=== PATIENT | male | born 1945 | race Caucasian/White ===

== ENCOUNTER → 2018-01-21 10:09 | Outpatient (CLI) | payer MEDICARE, SELFPAY ==
--- NOTE | 2018-01-21 | DI.US.S_ITS ---
PROCEDURE: US CAROTID DOPPLER BI INDICATIONS: VISUAL DISTURBANCES TECHNIQUE: Color and pulse Doppler interrogation was performed of both carotid systems, with image documentation and velocity measurements. COMPARISON: None. FINDINGS: Stenosis calculations are based on SRU (Society of Radiologists in Ultrasound) criteria. The flow velocities and the arterial waveforms are normal within both carotid arterial systems. Atherosclerotic plaque is seen on both sides. The estimated degree of internal carotid artery stenosis is less than 50%. Antegrade flow is confirmed within both vertebral arteries. IMPRESSION: No hemodynamically significant stenosis is seen. Atherosclerotic plaque is noted bilaterally. Dictated by: Narciso Ibanez M.D. on 01/21/2018 at 11:20 Approved by: Narciso Ibanez M.D. on 01/21/2018 at 11:21
== END ==
PROVIDERS: Family Provider Family Medicine; PCP Family Medicine; Visit Provider Physician Assistant
DX: H53.9 Unspecified visual disturbance (principal); I65.23 Occlusion and stenosis of bilateral carotid arteries
CPT/HCPCS: 93880

== ENCOUNTER 2018-06-23 13:32 | Emergency (ER) | payer MEDICARE, SELFPAY ==
[2018-06-23] VITALS (9 sets, daily range): BP systolic 83–134; BP diastolic 54–73; PULSE 81–105; RESP 18–22; TEMP 35.9–36.7; O2SAT 97–100; BMI 29.2
--- NOTE | 2018-06-23 14:40 | ED_ITS ---
HPI - Syncope <Natali Jamel, DO - Last Filed: 06/24/18 07:20> General Chief Complaint: Syncope Stated Complaint: passed out several times, muscle aches, constipate Time Seen by Provider: 06/23/18 14:12 Source: patient Mode of arrival: ambulatory Limitations: no limitations History of Present Illness HPI narrative: Patient is a 73-year-old male who presents with a variety of complaints. He states that he felt like he got the flu a month ago in [place]. He has had some intermittent abdominal pain however it has gone away. Today he had quite significant abdominal pain and briefly collapsed in the recliner. 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 He felt like it was coming on he felt lightheaded flushed and heart racing. No nausea. He has not had any fever no diarrhea. He felt extremely dizzy but no focal deficits or unilateral weakness. He is overall feeling better and was able to ambulate into the ED without any assistance. states that he did not have any shaking movements foaming at the mouth a rolling of the eyes at time of passing out. MD complaint: felt faint Context: at rest Related Data Home Medications Medication Instructions Recorded Confirmed aspirin 81 mg PO DAILY #0 12/18/10 06/23/18 atorvastatin [Lipitor] 20 mg PO BEDTIME 06/23/18 06/23/18 calcium carbonate 1,500 mg PO DAILY 06/23/18 06/23/18 cholecalciferol (vitamin D3) 1,000 unit PO DAILY 06/23/18 06/23/18 [Vitamin D3] fluoxetine 20 mg PO DAILY 06/23/18 06/23/18 folic acid 1 tab PO DAILY 06/23/18 06/23/18 levothyroxine 75 mcg PO DAILY 06/23/18 06/23/18 lisinopril 10 mg PO DAILY 06/23/18 06/23/18 milk thistle 1 cap PO DAILY 06/23/18 06/23/18 [id number]-vpt-[id number]-lycopen-lutein 1 tab PO DAILY 06/23/18 06/23/18 [Centrum Silver] pantoprazole 40 mg PO DAILY 06/23/18 06/23/18 trazodone 50 mg PO BEDTIME PRN 06/23/18 06/23/18 Allergies Allergy/AdvReac Type Severity Reaction Status Date / Time codeine [CODEINE] Allergy Mild GASTRO/INTESTINAL Verified 06/23/18 15:30 ISSUES Review of Systems <Natali Mccullough DO - Last Filed: 06/24/18 07:20> Review of Systems ROS Unobtainable: All systems reviewed & are unremarkable except as noted in HPI and below Constitutional Denies chills, Denies fever(s), Denies lethargy and Denies weakness Eyes Denies change in vision, Denies eye discharge, Denies irritation and Denies loss of vision Cardiovascular Denies chest pain, Reports syncope, Reports rapid heart rate and Reports lightheadedness Gastrointestinal Gastrointestinal: Reports abdominal pain, Denies nausea and Denies vomiting Genitourinary Denies hematuria, Denies flank pain, Denies urinary incontinence and Denies urinary urgency Musculoskeletal Denies back pain, Denies muscle weakness, Denies numbness and Denies tingling Integumentary/Breasts Denies pruritus, Denies erythema, Denies rash and Denies wounds Neurologic Reports syncope, Denies loss of vision, Denies numbness, Denies tingling and Denies weakness PFSH <Natali Mccullough DO - Last Filed: 06/24/18 07:20> Medical History GERD (gastroesophageal reflux disease) (Acute) Hyperlipidemia (Acute) Hypertension (Acute) Hypothyroid (Acute) Surgical History History of hip replacement History of tonsillectomy Status post cholecystectomy Social History Smoking Status: Never smoker Social History Smoking Status: Never smoker Exam <Natali Mccullough DO - Last Filed: 06/24/18 07:20> Initial Vital Signs Initial Vital Signs: Vital Signs Temperature 96.6 F L 06/23/18 13:49 Pulse Rate 103 H 06/23/18 13:49 Respiratory Rate 18 06/23/18 13:49 Blood Pressure 100/73 06/23/18 13:49 Pulse Oximetry 99 06/23/18 13:49 GENERAL: Overweight alert male no acute distress and in [no acute] distress. 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 RESPIRATORY: Breath sounds equal bilaterally, no wheezes rales or rhonchi. ABDOMEN: Soft, obese no pulsatile masses mild umbilical pain no guarding no rebound no right upper quadrant pain no lower abdominal pain : No CVA tenderness EXTREMITIES: Normal range of motion, no clubbing or edema. Neurovascularly intact NEUROLOGICAL: Alert and oriented x4.Normal gait and speech. Cranial nerves II through XII grossly intact. 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 <Gerald Gonzalez DO - Last Filed: 06/23/18 23:20> Initial Vital Signs Initial Vital Signs: Vital Signs Temperature 96.6 F L 06/23/18 13:49 Pulse Rate 103 H 06/23/18 13:49 Respiratory Rate 18 06/23/18 13:49 Blood Pressure 100/73 06/23/18 13:49 Pulse Oximetry 99 06/23/18 13:49 Course <Natali Mccullough DO - Last Filed: 06/24/18 07:20> Orders Ordered: Discontinued Medications Sodium Chloride (Normal Saline 0.9%) 1,000 mls @ 1,000 mls/hr IV BOLUS ONE Stop: 06/23/18 16:12 Last Infusion: 06/23/18 16:41 Dose: 0 mls/hr Admin: 06/23/18 15:30 Dose: 1,000 mls/hr Sodium Chloride (Normal Saline 0.9%) 1,000 mls @ 1,000 mls/hr IV BOLUS ONE Stop: 06/23/18 17:08 Last Infusion: 06/23/18 17:45 Dose: 0 mls/hr Admin: 06/23/18 16:43 Dose: 1,000 mls/hr Sodium Chloride (Normal Saline 0.9%) 1,000 mls @ 250 mls/hr IV CONT YESSY Last Infusion: 06/23/18 22:06 Dose: 0 mls/hr Admin: 06/23/18 17:49 Dose: 250 mls/hr Ceftriaxone Sodium/Dextrose (Rocephin) 1 gm in 50 mls @ 100 mls/hr IV NOW ONE Stop: 06/23/18 21:54 Last Infusion: 06/23/18 22:06 Dose: 0 mls/hr Admin: 06/23/18 21:37 Dose: 100 mls/hr Metronidazole (Flagyl) 500 mg in 100 mls @ 100 mls/hr IV NOW ONE Stop: 06/23/18 23:49 Last Infusion: 06/24/18 00:05 Dose: 0 mls/hr Admin: 06/23/18 23:02 Dose: 100 mls/hr Morphine Sulfate (Morphine) 2 mg IV NOW ONE Stop: 06/23/18 16:01 Last Admin: 06/23/18 16:02 Dose: 2 mg Morphine Sulfate (Morphine Sulfate) 2 mg IV NOW ONE Stop: 06/24/18 00:09 Last Admin: 06/24/18 00:11 Dose: 2 mg Vital Signs - 8 hr 06/24/18 01:16 06/24/18 01:54 Pulse Rate 81 81 Respiratory Rate 18 20 Blood Pressure [Right Arm] 113/70 103/66 Pulse Oximetry 99 97 <Gerald Gonzalez DO - Last Filed: 06/23/18 23:20> Orders Ordered: Discontinued Medications Sodium Chloride (Normal Saline 0.9%) 1,000 mls @ 1,000 mls/hr IV BOLUS ONE Stop: 06/23/18 16:12 Last Infusion: 06/23/18 16:41 Dose: 0 mls/hr Admin: 06/23/18 15:30 Dose: 1,000 mls/hr Sodium Chloride (Normal Saline 0.9%) 1,000 mls @ 1,000 mls/hr IV BOLUS ONE Stop: 06/23/18 17:08 Last Infusion: 06/23/18 17:45 Dose: 0 mls/hr Admin: 06/23/18 16:43 Dose: 1,000 mls/hr Sodium Chloride (Normal Saline 0.9%) 1,000 mls @ 250 mls/hr IV CONT YESSY Last Infusion: 06/23/18 22:06 Dose: 0 mls/hr Admin: 06/23/18 17:49 Dose: 250 mls/hr Ceftriaxone Sodium/Dextrose (Rocephin) 1 gm in 50 mls @ 100 mls/hr IV NOW ONE Stop: 06/23/18 21:54 Last Infusion: 06/23/18 22:06 Dose: 0 mls/hr Admin: 06/23/18 21:37 Dose: 100 mls/hr Metronidazole (Flagyl) 500 mg in 100 mls @ 100 mls/hr IV NOW ONE Stop: 06/23/18 23:49 Last Infusion: 06/24/18 00:05 Dose: 0 mls/hr Admin: 06/23/18 23:02 Dose: 100 mls/hr Morphine Sulfate (Morphine) 2 mg IV NOW ONE Stop: 06/23/18 16:01 Last Admin: 06/23/18 16:02 Dose: 2 mg Morphine Sulfate (Morphine Sulfate) 2 mg IV NOW ONE Stop: 06/24/18 00:09 Last Admin: 06/24/18 00:11 Dose: 2 mg Vital Signs - 8 hr 06/24/18 01:16 06/24/18 01:54 Pulse Rate 81 81 Respiratory Rate 18 20 Blood Pressure [Right Arm] 113/70 103/66 Pulse Oximetry 99 97 MDM - Syncope <Natali Mccullough DO - Last Filed: 06/24/18 07:20> Lab Data Attestation: I reviewed the patient's lab results. Result diagrams: 06/23/18 14:10 06/23/18 14:10 Lab Results 06/23/18 06/23/18 06/23/18 Range/Units 14:10 14:10 14:10 WBC 23.8 H (4.5-11.0) X10^3/uL RBC 4.32 L (4.5-5.9) X10^6/uL Hgb 14.0 (13.5-17.5) g/dL Hct 44.4 (41-53) % MCV 102.6 H (80-100) fL MCH 32.5 (26-34) PG MCHC 31.7 (30-36) % RDW 15.7 H (11.6-14.8) % Plt Count 280 (150-400) X10^3/uL Neut % (Auto) 86.9 H (50-75) % Lymph % (Auto) 4.1 L (25-40) % [place] % (Auto) 7.4 (3-14) % Eos % (Auto) 1.2 L (2-4) % Baso % (Auto) 0.4 (0-2) % Neut # (Auto) 81729 H (4947-0004) /uL Lymph # (Auto) 1000 L (4257-6386) /uL [place] # (Auto) 1800 H (0-900) /uL Eos # (Auto) 300 (0-450) /uL Baso # (Auto) 100 (0-100) /uL Sodium 137 (137-145) mmol/L Potassium 4.2 (3.4-5.1) mmol/L Chloride 106 (98-107) mmol/L Carbon Dioxide 19 L (22-32) mmol/L BUN 22 H (9-20) mg/dL Creatinine 1.10 (0.66-1.25) mg/dL Estimated GFR > 60.0 (>60) mL/min BUN/Creatinine Ratio 20.0 (6-22) Glucose 134 H (80-110) mg/dL Lactate (0.7-2.1) mmol/L Calcium 8.0 L (8.4-10.2) mg/dL Total Bilirubin 4.7 H (0.2-1.3) mg/dL AST 84 H (17-59) IU/L ALT 49 (21-72) IU/L Alkaline Phosphatase 432 H (38-126) U/L Total Creatine Kinase 48 L (55-170) U/L CK-MB (CK-2) TNP CK-MB (CK-2) Rel Index TNP Troponin I 0.017 (0.01-0.034) ng/mL Total Protein 6.3 (6.3-8.2) g/dL Albumin 2.9 L (3.5-5.0) g/dL Globulin 3.4 (1.7-4.1) g/dL Albumin/Globulin Ratio 0.9 L (1.0-2.8) Lipase 33929 H (23-300) U/L 06/23/18 06/23/18 Range/Units 14:10 18:04 WBC (4.5-11.0) X10^3/uL RBC (4.5-5.9) X10^6/uL Hgb (13.5-17.5) g/dL Hct (41-53) % MCV (80-100) fL MCH (26-34) PG MCHC (30-36) % RDW (11.6-14.8) % Plt Count (150-400) X10^3/uL Neut % (Auto) (50-75) % Lymph % (Auto) (25-40) % [place] % (Auto) (3-14) % Eos % (Auto) (2-4) % Baso % (Auto) (0-2) % Neut # (Auto) (9997-1590) /uL Lymph # (Auto) (5155-4715) /uL [place] # (Auto) (0-900) /uL Eos # (Auto) (0-450) /uL Baso # (Auto) (0-100) /uL Sodium (137-145) mmol/L Potassium (3.4-5.1) mmol/L Chloride (98-107) mmol/L Carbon Dioxide (22-32) mmol/L BUN (9-20) mg/dL Creatinine (0.66-1.25) mg/dL Estimated GFR (>60) mL/min BUN/Creatinine Ratio (6-22) Glucose (80-110) mg/dL Lactate 3.7 H 2.9 H (0.7-2.1) mmol/L Calcium (8.4-10.2) mg/dL Total Bilirubin (0.2-1.3) mg/dL AST (17-59) IU/L ALT (21-72) IU/L Alkaline Phosphatase (38-126) U/L Total Creatine Kinase (55-170) U/L CK-MB (CK-2) CK-MB (CK-2) Rel Index Troponin I (0.01-0.034) ng/mL Total Protein (6.3-8.2) g/dL Albumin (3.5-5.0) g/dL Globulin (1.7-4.1) g/dL Albumin/Globulin Ratio (1.0-2.8) Lipase (23-300) U/L Imaging Data Abdominal x-ray: Radiologist's impression: PROCEDURE: XR ABDOMEN MIN 2V INDICATIONS: pain bloating TECHNIQUE: 2 views of the abdomen were acquired. COMPARISON: None. FINDINGS: Surgical changes and devices: Cholecystectomy clips. Right hip arthroplasty. Bowel: No pneumoperitoneum. Mildly dilated loop of small bowel noted. The small bowel to 3.5 cm. Few scattered air fluid levels are noted. Soft tissues: No masses; visualized solid organ contours appear normal in size. No suspicious abdominal calcifications. Bones: No suspicious bony abnormalities. IMPRESSION: Mildly dilated loop of small bowel and air fluid level with differential height concerning for early or partial small bowel obstruction. Dictated by: Adele Dang MD, PhD on 06/23/2018 at 15:40 US - abdomen: Radiologist's impression: ADDENDUM This report includes an Addendum and supersedes previous reports for this exam. PROCEDURE: US ABDOMEN COMPLETE INDICATIONS: hypotenstion and ab pain. look aorta TECHNIQUE: Real-time scanning was performed of the abdominal and retroperitoneal organs, with image documentation. COMPARISON: [facility], CR, XR ABDOMEN MIN 2V, 06/23/2018, 15:21. [facility], CT, ABDOMEN WITH CONTRAST, 09/24/2016, 8:25. [facility], US, ABDOMEN COMPLETE, 08/28/2016, 10:15. FINDINGS: Liver: Liver is normal in size and coarsened in appearance. Gallbladder: Gallbladder has been removed. Biliary ducts: Intrahepatic bile ducts are non-dilated. Extrahepatic bile duct caliber measures 8.1 mm. Normal is 6-7 mm or less in diameter, or 10 mm or less post-cholecystectomy. Pancreas: The pancreas is poorly visualized. There is a questionable masslike appearance in the expected midline location of the pancreatic body, not well seen.. Spleen: Spleen is enlarged with varices. Kidneys: Kidneys are normal in size and echotexture. Right kidney measures 9.7 cm long; left kidney measures 9.7 cm long. No hydronephrosis or nephrolithiasis. No solid masses. Aorta: Visualized aorta is normal in caliber at less than 3 cm. Iliacs: Not well-seen. IVC: Not well-seen. Miscellaneous: Mild ascites is noted in the right upper quadrant adjacent to the liver. IMPRESSION: 1. Mild ascites in the right upper quadrant adjacent to the gallbladder. 2. Coarsened appearance of the liver, splenomegaly and varices most consistent with worsening portal venous hypertension. 3. Ill-defined question of possible mass within the region of the mid pancreatic body. This is poorly visualized and could be artifact. It is noted that no mass was identified on CT exam of 2017. As clinically indicated, further evaluation with CT is recommended. Dictated by: Jessica Vargas M.D. on 06/23/2018 at 16:56 Approved by: Jessica Vargas M.D. on 06/23/2018 at 16:59 ADDENDUM: COMPARISON: [facility], , ABDOMEN COMPLETE, 05/17/2007, 20:25. Findings discussed with the emergency room physician. The impression section above, #1, should state mild ascites in the right upper quadrant adjacent to the gallbladder fossa. The gallbladder has been previously resected. A second significant finding was discussed is the absence of flow within the portal vein, chronicity unknown but certainly presence on the CT scan performed with contrast 09/24/16. CT scanning is anticipated and will provide additional detail regarding the appearance of the portal vein to determine whether it is likely from tumor thrombus versus bland thrombus. Dictated by: Pineda Pineda M.D. on 06/23/2018 at 17:27 Approved by: Pineda Pineda M.D. on 06/23/2018 at 17:29 MDM Narrative Medical decision making narrative: The patient is stood up to have abdominal x- ray done he got extremely lightheaded blood pressure dropped and dizzy. Again having increased abdominal pain. Worry for thick abdominal aneurysm. Stat ultrasound was ordered. IV fluids improved his blood pressure overall feeling better. By that time blood work actually came back with lipase significantly elevated at 12,000 thousand ultrasound was unable to see the aorta completely but no significant fluid abnormality and masslike seen on ultrasound and decreased flow in portal vein. Patient needs CT. Currently CT is down at [facility]. Patient was aggressively fluid resuscitated remained hemodynamically stable and sent for CT by ALS crew. He does have leukocytosis with elevated lactic acid. He is afebrile unclear if there is infection or this is due to stress and syncopal episode. Waiting for CT results patient may need transfer versus admission here. Patient signed out to Dr. Gonzalez <Gerald Gonzalez, DO - Last Filed: 06/23/18 23:20> Lab Data Attestation: I reviewed the patient's lab results. Lab Results 06/23/18 06/23/18 06/23/18 Range/Units 14:10 14:10 14:10 WBC 23.8 H (4.5-11.0) X10^3/uL RBC 4.32 L (4.5-5.9) X10^6/uL Hgb 14.0 (13.5-17.5) g/dL Hct 44.4 (41-53) % MCV 102.6 H (80-100) fL MCH 32.5 (26-34) PG MCHC 31.7 (30-36) % RDW 15.7 H (11.6-14.8) % Plt Count 280 (150-400) X10^3/uL Neut % (Auto) 86.9 H (50-75) % Lymph % (Auto) 4.1 L (25-40) % [place] % (Auto) 7.4 (3-14) % Eos % (Auto) 1.2 L (2-4) % Baso % (Auto) 0.4 (0-2) % Neut # (Auto) 22873 H (2261-9230) /uL Lymph # (Auto) 1000 L (1558-7156) /uL [place] # (Auto) 1800 H (0-900) /uL Eos # (Auto) 300 (0-450) /uL Baso # (Auto) 100 (0-100) /uL Sodium 137 (137-145) mmol/L Potassium 4.2 (3.4-5.1) mmol/L Chloride 106 (98-107) mmol/L Carbon Dioxide 19 L (22-32) mmol/L BUN 22 H (9-20) mg/dL Creatinine 1.10 (0.66-1.25) mg/dL Estimated GFR > 60.0 (>60) mL/min BUN/Creatinine Ratio 20.0 (6-22) Glucose 134 H (80-110) mg/dL Lactate (0.7-2.1) mmol/L Calcium 8.0 L (8.4-10.2) mg/dL Total Bilirubin 4.7 H (0.2-1.3) mg/dL AST 84 H (17-59) IU/L ALT 49 (21-72) IU/L Alkaline Phosphatase 432 H (38-126) U/L Total Creatine Kinase 48 L (55-170) U/L CK-MB (CK-2) TNP CK-MB (CK-2) Rel Index TNP Troponin I 0.017 (0.01-0.034) ng/mL Total Protein 6.3 (6.3-8.2) g/dL Albumin 2.9 L (3.5-5.0) g/dL Globulin 3.4 (1.7-4.1) g/dL Albumin/Globulin Ratio 0.9 L (1.0-2.8) Lipase 83649 H (23-300) U/L 06/23/18 06/23/18 Range/Units 14:10 18:04 WBC (4.5-11.0) X10^3/uL RBC (4.5-5.9) X10^6/uL Hgb (13.5-17.5) g/dL Hct (41-53) % MCV (80-100) fL MCH (26-34) PG MCHC (30-36) % RDW (11.6-14.8) % Plt Count (150-400) X10^3/uL Neut % (Auto) (50-75) % Lymph % (Auto) (25-40) % [place] % (Auto) (3-14) % Eos % (Auto) (2-4) % Baso % (Auto) (0-2) % Neut # (Auto) (3133-9961) /uL Lymph # (Auto) (4546-6931) /uL [place] # (Auto) (0-900) /uL Eos # (Auto) (0-450) /uL Baso # (Auto) (0-100) /uL Sodium (137-145) mmol/L Potassium (3.4-5.1) mmol/L Chloride (98-107) mmol/L Carbon Dioxide (22-32) mmol/L BUN (9-20) mg/dL Creatinine (0.66-1.25) mg/dL Estimated GFR (>60) mL/min BUN/Creatinine Ratio (6-22) Glucose (80-110) mg/dL Lactate 3.7 H 2.9 H (0.7-2.1) mmol/L Calcium (8.4-10.2) mg/dL Total Bilirubin (0.2-1.3) mg/dL AST (17-59) IU/L ALT (21-72) IU/L Alkaline Phosphatase (38-126) U/L Total Creatine Kinase (55-170) U/L CK-MB (CK-2) CK-MB (CK-2) Rel Index Troponin I (0.01-0.034) ng/mL Total Protein (6.3-8.2) g/dL Albumin (3.5-5.0) g/dL Globulin (1.7-4.1) g/dL Albumin/Globulin Ratio (1.0-2.8) Lipase (23-300) U/L MDM Narrative Medical decision making narrative: Received turned over from day provider. Reviewed patient's history and physical and labs. He was at the CT scanner upon my arrival. CT resulted as biliary ductal dilation. As well as thickening of the bile duct rao, suggestive of cholangitis. Obstructing calculus or neoplasm may be present. Two. Necrotic peripancreatic lymph node which may indicate underlying infection or neoplasm. Three. Chronic pancreatitis. Peripancreatic fat stranding is present consistent with pancreatitis. Four. Cirrhosis. Cavernous transformation of the portal vein, and portal hypertension with ascites. Five. Thickened small bowel loops, indicating sequela of portal hypertension, ischemia, inflammation or infection. Patient's heart rate and lactate improving with fluids. He was given Rocephin and Flagyl here in the emergency department. Patient was never hypotensive. Given his findings on the CT scan and the need for an ERCP a transfer to a facility with GI capability is warranted. Patient requested [facility]. Discussed the case with who accepts the patient in transfer. Discussed the transfer with the patient and his expressed understanding and agreement. Patient is stable for transport. Critical Care Time <Natali Mccullough DO - Last Filed: 06/24/18 07:20> Critical Care Time: Yes Total Critical Care Time: 30 Attestation: The high probability of a clinically significant, sudden or life threatening deterioration of the [cardiovascular] system(s) required my full and direct attention, intervention and personal management. The aggregate critical care time was 30 minutes. This time is in addition to time spent performing reported procedures but includes the following: [x] Data Review and interpretation [x] Patient assessment and monitoring of vital signs [x] Documentation [x] Medication orders and management Discharge Plan Departure Patient Disposition: [facility] Clinical Impression: Cholangitis Acute pancreatitis Qualifiers: Pancreatitis type: unspecified pancreatitis type Acute pancreatitis complication: unspecified Qualified Code(s): K85.90 - Acute pancreatitis without necrosis or infection, unspecified Discharge Date/Time: 06/24/18 02:11 Interventions: ED Discharge Assessment Last Done: 06/24/18 02:10 Prescriptions: No Action aspirin 81 mg Tablet,Delayed Release (Dr/Ec) 81 mg PO DAILY Qty: 0 RF: 0 levothyroxine 75 mcg tablet 75 mcg PO DAILY RF: 0 lisinopril 10 mg tablet 10 mg PO DAILY RF: 0 atorvastatin [Lipitor] 20 MG tablet 20 mg PO BEDTIME RF: 0 trazodone 50 MG tablet 50 mg PO BEDTIME PRN (Reason: Sleep) RF: 0 pantoprazole 40 MG tablet,delayed release (DR/EC) 40 mg PO DAILY RF: 0 fluoxetine 20 MG capsule 20 mg PO DAILY RF: 0 cholecalciferol (vitamin D3) [Vitamin D3] 1,000 unit Tablet 1,000 unit PO DAILY RF: 0 calcium carbonate 600 mg calcium (1,500 mg) Tablet 1,500 mg PO DAILY RF: 0 Centrum Silver 0.4-300-250 mg-mcg-mcg Tablet 1 tab PO DAILY RF: 0 folic acid tablet 1 tab PO DAILY RF: 0 milk thistle capsule 1 cap PO DAILY RF: 0 Referrals: Monica Llanos PA-C [Primary Care Provider] -
--- NOTE | 2018-06-23 15:13 | DI.RAD.S_ITS ---
PROCEDURE: XR ABDOMEN MIN 2V INDICATIONS: pain bloating TECHNIQUE: 2 views of the abdomen were acquired. COMPARISON: None. FINDINGS: Surgical changes and devices: Cholecystectomy clips. Right hip arthroplasty. Bowel: No pneumoperitoneum. Mildly dilated loop of small bowel noted. The small bowel to 3.5 cm. Few scattered air fluid levels are noted. Soft tissues: No masses; visualized solid organ contours appear normal in size. No suspicious abdominal calcifications. Bones: No suspicious bony abnormalities. IMPRESSION: Mildly dilated loop of small bowel and air fluid level with differential height concerning for early or partial small bowel obstruction. Dictated by: Adele Dang MD, PhD on 06/23/2018 at 15:40 Approved by: Adele Dang MD, PhD on 06/23/2018 at 15:42
[2018-06-23 15:21] LABS: Add Manual Diff / Slide Review NO; Basophils Absolute Auto 100 /uL (0-100); Basophils Percent Auto 0.4 % (0-2); Eosinophils Absolute Auto 300 /uL (0-450); Eosinophils Percent Auto 1.2 % (2-4); Hematocrit 44.4 % (41-53); Lymphocytes Absolute Auto 1000 /uL (1100-4500); Lymphocytes Percent Auto 4.1 % (25-40); Mean Corpuscular HGB Conc 31.7 % (30-36); Mean Corpuscular Hemoglobin 32.5 PG (26-34); Mean Corpuscular Volume 102.6 fL (80-100); Monocytes Absolute Auto 1800 /uL (0-900); Monocytes Percent Auto 7.4 % (3-14); Neutrophils Absolute Auto 20700 /uL (1500-7000); Neutrophils Percent Auto 86.9 % (50-75); Platelet Count 280 X10^3/uL (150-400); Red Blood Cell Count 4.32 X10^6/uL (4.5-5.9); Red Cell Distribution Width 15.7 % (11.6-14.8); White Blood Cell Count 23.8 X10^3/uL (4.5-11.0)
[2018-06-23 15:28] LABS: Alanine Aminotransferase 49 IU/L (21-72); Albumin 2.9 g/dL (3.5-5.0); Albumin Globulin Ratio 0.9 (1.0-2.8); Alkaline Phosphatase 432 U/L (38-126); Aspartate Aminotransferase 84 IU/L (17-59); Bilirubin Total 4.7 mg/dL (0.2-1.3); Blood Urea Nitrogen 22 mg/dL (9-20); Carbon Dioxide 19 mmol/L (22-32); Chloride 106 mmol/L (98-107); Creatine Kinase 48 U/L (55-170); Estimated Glomerular Filt Rate > 60.0 mL/min (>60); Globulin 3.4 g/dL (1.7-4.1); Glucose 134 mg/dL (80-110); HEMOLYSIS < 15 (0-50); Potassium 4.2 mmol/L (3.4-5.1); Sodium 137 mmol/L (137-145); Total Protein 6.3 g/dL (6.3-8.2)
[2018-06-23] MEDS: SODIUM CHLORIDE 0.9% 1,000 ML 1000 ML IV ×2 (15:30→16:43)
--- NOTE | 2018-06-23 15:36 | DI.US.S_ITS ---
PROCEDURE: US ABDOMEN COMPLETE INDICATIONS: hypotenstion and ab pain. look aorta TECHNIQUE: Real-time scanning was performed of the abdominal and retroperitoneal organs, with image documentation. COMPARISON: [facility], CR, XR ABDOMEN MIN 2V, 06/23/2018, 15:21. [facility], CT, ABDOMEN WITH CONTRAST, 09/24/2016, 8:25. [facility], US, ABDOMEN COMPLETE, 08/28/2016, 10:15. FINDINGS: Liver: Liver is normal in size and coarsened in appearance. Gallbladder: Gallbladder has been removed. Biliary ducts: Intrahepatic bile ducts are non-dilated. Extrahepatic bile duct caliber measures 8.1 mm. Normal is 6-7 mm or less in diameter, or 10 mm or less post-cholecystectomy. Pancreas: The pancreas is poorly visualized. There is a questionable masslike appearance in the expected midline location of the pancreatic body, not well seen.. Spleen: Spleen is enlarged with varices. Kidneys: Kidneys are normal in size and echotexture. Right kidney measures 9.7 cm long; left kidney measures 9.7 cm long. No hydronephrosis or nephrolithiasis. No solid masses. Aorta: Visualized aorta is normal in caliber at less than 3 cm. Iliacs: Not well-seen. IVC: Not well-seen. Miscellaneous: Mild ascites is noted in the right upper quadrant adjacent to the liver. IMPRESSION: 1. Mild ascites in the right upper quadrant adjacent to the gallbladder. 2. Coarsened appearance of the liver, splenomegaly and varices most consistent with worsening portal venous hypertension. 3. Ill-defined question of possible mass within the region of the mid pancreatic body. This is poorly visualized and could be artifact. It is noted that no mass was identified on CT exam of 2017. As clinically indicated, further evaluation with CT is recommended. Dictated by: Jessica Vargas M.D. on 06/23/2018 at 16:56 Approved by: Jessica Vargas M.D. on 06/23/2018 at 16:59
--- NOTE | 2018-06-23 15:38 | PC.NURSE ---
Pt returns from XRAY. States he stood up and felt like he was going to pass out. Pt placed in trendelenburg, Fluids started. BP 83/56 Dr. Mccullough notified. Called for Stat Ultrasound.
[2018-06-23 15:39] LABS: Troponin I 0.017 ng/mL (0.01-0.034)
[2018-06-23 15:45] LABS: Lipase 12034 U/L (23-300)
[2018-06-23 16:00] LABS: Lactate (Lactic Acid) 3.7 mmol/L (0.7-2.1)
[2018-06-23] MEDS: MORPHINE 2 MG/ML INJ IV (16:02)
[2018-06-23 17:48] LABS: Reflexed Lactate in 2 Hours Y
[2018-06-23] MEDS: SODIUM CHLORIDE 0.9% 1,000 ML 250 ML IV (17:49)
[2018-06-23 18:41] LABS: Lactate 2HR (Lactic Acid Rflx) 2.9 mmol/L (0.7-2.1)
[2018-06-23] MEDS: CEFTRIAXONE 1 GM/50 ML FROZ.PIGGY IV (21:37)
[2018-06-23] MEDS: metroNIDAZOLE 500 MG/100 ML PIGGYBACK 100 MG IV (23:02)
[2018-06-24] MEDS: MORPHINE 5 MG/ML INJ 2 MG IV (00:11)
[2018-06-24 01:16] VITALS: BP 113/70; PULSE 81; RESP 18; O2SAT 99
--- NOTE | 2018-06-24 01:28 | PC.NURSE ---
[facility]
[2018-06-24 01:54] VITALS: BP 103/66; PULSE 81; RESP 20; O2SAT 97
== END 2018-06-24 02:11 | disposition short-term general hospital (02) ==
PROVIDERS: Emergency Medicine; Emergency Provider Emergency Medicine; PCP Physician Assistant
DX: K83.09 Other cholangitis (principal); K85.90 Acute pancreatitis without necrosis or infection, unspecified; R00.0 Tachycardia, unspecified; I95.9 Hypotension, unspecified
CPT/HCPCS: 36415; 36591; 74019; 76700; 80053; 82550; 83605; 83690; 84484; 85025; 87040; 93005; 93010; 96361; 96365; 96367; 96375; 96376; 99284; 99285; J2270